=== PATIENT | male | born 1940 | race Hispanic/Latino ===

== ENCOUNTER 2017-10-14 19:50 | Inpatient (IN) | payer MEDICARE ==
[~2017-10-14] VITALS: Ht 165.1 cm; Wt 75.7 kg
[~2017-10-14 19:50] MED LIST: CLIN300C9 PO; CYCL5TAB PO; GABA-531 PO; HYDR-305 PO; LISI-617 PO; METO25TA6 PO; PANT20TA12 PO; TAMS0.4C32 PO
[2017-10-14 20:36] LABS: BASOPHILS % (AUTO) 0.2 % (0.0-5.0); EOSINOPHILS % (AUTO) 0.4 % (0.0-8.0); HEMATOCRIT 38.8 % (42-54); LYMPHOCYTES % (AUTO) 6.9 % (21.0-51.0); MEAN CORPUSCULAR HEMOGLOBIN 29.2 pg (27.0-33.0); MEAN CORPUSCULAR HGB CONC 33.6 g/dL (32.0-36.0); MEAN CORPUSCULAR VOLUME 86.9 fL (79-99); MONOCYTES % (AUTO) 7.8 % (3.0-13.0); NEUTROPHILS % (AUTO) 84.7 % (40.0-77.0); PLATELET COUNT (AUTO) 316 K/uL (130-400); RED BLOOD CELL COUNT(AUTO) 4.46 MIL/uL (4.50-6.20); RED CELL DISTRIBUTION WIDTH 13.8 % (11.0-15.5); WHITE BLOOD COUNT (AUTO) 11.8 K/uL (4.8-10.8)
[2017-10-14 20:47] LABS: CREATININE 0.7 mg/dL (0.5-1.5); INR 1.02 (0.85-1.15); PARTIAL THROMBOPLASTIN TIME 32.8 SEC (26.3-35.5); POTASSIUM 3.8 mmol/L (3.5-5.1); PROTHROMBIN TIME 10.7 SEC (9.6-11.6)
[2017-10-14 20:52] LABS: ALBUMIN 2.9 g/dL (3.5-5.0); BILIRUBIN,TOTAL 1.3 mg/dL (0.2-1.0); TOTAL PROTEIN, SERUM 7.1 g/dL (6.0-8.3)
[2017-10-14 21:25] LABS: APPEARANCE,URINE Clear (CLEAR); BILIRUBIN,URINE Negative (NEGATIVE); COLOR,URINE Yellow (YELLOW); GLUCOSE, URINE (UA) Negative (NEGATIVE); KETONES,URINE Trace mg/dL (NEGATIVE); LEUKOCYTE ESTERASE ,URINE Negative (NEGATIVE); NITRATE,URINE Negative (NEGATIVE); OCCULT BLOOD,URINE Negative (NEGATIVE); PROTEIN,URINE Negative (NEGATIVE)
[2017-10-14] MEDS ORDERED: SODIUM CHLORIDE 0.9% 1000ML 1,000 ML IV ONE (22:51)
[2017-10-14] MEDS ORDERED: GLUCAGON 1MG KIT 1 MG ML IM PRN (23:45)
[2017-10-14] MEDS: SODIUM CHLORIDE 0.9% 1000ML 1,000 ML IV SCH (23:45)
[2017-10-14] MEDS ORDERED: DEXTROSE 50%-WATER 50 ML DISP.SYRIN IV PRN (23:45)
[2017-10-14] MEDS ORDERED: DIAZEPAM 5 MG/ML 2 ML SYG IVP PRN (23:45)
[2017-10-15] VITALS (7 sets, daily range): BP systolic 108–180; BP diastolic 57–94
[2017-10-15] MEDS: TRAMADOL HCL 50 MG TABLET PO PRN ×2 (01:47→21:00)
[2017-10-15] MEDS ORDERED: GABA-529 PO (02:33)
[2017-10-15 04:53] LABS: BASOPHILS % (AUTO) 0.3 % (0.0-5.0); EOSINOPHILS % (AUTO) 0.1 % (0.0-8.0); HEMATOCRIT 33.5 % (42-54); LYMPHOCYTES % (AUTO) 8.2 % (21.0-51.0); MEAN CORPUSCULAR HEMOGLOBIN 30.5 pg (27.0-33.0); MONOCYTES % (AUTO) 9.2 % (3.0-13.0); NEUTROPHILS % (AUTO) 82.2 % (40.0-77.0); PLATELET COUNT (AUTO) 283 K/uL (130-400); RED BLOOD CELL COUNT(AUTO) 3.85 MIL/uL (4.50-6.20); RED CELL DISTRIBUTION WIDTH 13.6 % (11.0-15.5); WHITE BLOOD COUNT (AUTO) 8.7 K/uL (4.8-10.8)
[2017-10-15 05:01] LABS: ALBUMIN 2.3 g/dL (3.5-5.0); BILIRUBIN,TOTAL 1.3 mg/dL (0.2-1.0); CREATININE 0.7 mg/dL (0.5-1.5); POTASSIUM 3.7 mmol/L (3.5-5.1); TOTAL PROTEIN, SERUM 5.8 g/dL (6.0-8.3)
[2017-10-15] MEDS ORDERED: KETOROLAC TROMETHAMINE 30MG/ML IV PRN (08:45)
[2017-10-15] MEDS: PANTOPRAZOLE SODIUM 40 MG TABLET.DR PO SCH (09:34)
[2017-10-15] MEDS: LISINOPRIL 5 MG TABLET PO SCH (09:34)
[2017-10-15] MEDS: GABAPENTIN 100 MG CAPSULE PO SCH ×2 (09:37→20:59)
[2017-10-15] MEDS: SODIUM CHLORIDE 0.9% 1000ML 1,000 ML IV SCH ×2 (09:37→21:08)
[2017-10-15] MEDS: HYDROMORPHONE 1 MG/1 ML AMP IVP PRN ×2 (09:47→16:27)
[2017-10-15] MEDS: TAMSULOSIN HCL 0.4 MG CAP.ER.24H PO SCH (20:59)
[2017-10-15] MEDS: DOCUSATE SODIUM 100 MG CAP PO SCH (20:59)
[2017-10-15] MEDS: FINASTERIDE 5 MG TABLET PO SCH (20:59)
[2017-10-16 00:06] VITALS: BP 135/88
[2017-10-16 04:06] VITALS: BP 137/88
[2017-10-16 07:30] VITALS: BP 122/72
[2017-10-16] MEDS: TRAMADOL HCL 50 MG TABLET PO PRN (08:36)
[2017-10-16] MEDS: GABAPENTIN 100 MG CAPSULE PO SCH ×2 (08:36→21:24)
[2017-10-16] MEDS: PANTOPRAZOLE SODIUM 40 MG TABLET.DR PO SCH (08:36)
[2017-10-16] MEDS: FINASTERIDE 5 MG TABLET PO SCH (08:36)
[2017-10-16] MEDS: DOCUSATE SODIUM 100 MG CAP PO SCH ×2 (08:37→21:24)
[2017-10-16] MEDS: SODIUM CHLORIDE 0.9% 1000ML 1,000 ML IV SCH (10:01)
[2017-10-16] MEDS: LISINOPRIL 5 MG TABLET PO SCH (10:02)
[2017-10-16 11:00] VITALS: BP 109/68
[2017-10-16] MEDS ORDERED: VANCOMYCIN PROTOCOL PER PHARMACY IV SCH (11:15)
[2017-10-16] MEDS ORDERED: DEXTROSE 50%-WATER 50 ML DISP.SYRIN IV PRN (11:30)
[2017-10-16] MEDS ORDERED: GLUCAGON 1MG KIT 1 MG ML IM PRN (11:30)
[2017-10-16] MEDS: INSULIN HUMULIN R 100 UNIT/ML 3ML SQ SCH ×3 (11:30→21:00)
[2017-10-16] MEDS ORDERED: COMPOUND IV REFRIGERATED 1 EACH IVSOLN MISC PRN (11:30)
[2017-10-16 11:34] LABS: CREATININE 0.7 mg/dL (0.5-1.5); POTASSIUM 3.5 mmol/L (3.5-5.1)
[2017-10-16] MEDS: HYDROMORPHONE 1 MG/1 ML AMP IVP PRN ×2 (12:13→17:26)
[2017-10-16] MEDS: VANCOMYCIN 1.25 GM in SODIUM CHLORIDE 0.9% 250 ML IV SCH (12:38)
[2017-10-16] MEDS: DIAZEPAM 5 MG TABLET PO PRN ×2 (14:45→19:05)
[2017-10-16 16:00] VITALS: BP 122/82
[2017-10-16] MEDS: LACTULOSE 20 GM/30 ML UDCUP PO PRN (18:31)
[2017-10-16 19:49] VITALS: BP 137/86
[2017-10-16] MEDS: TAMSULOSIN HCL 0.4 MG CAP.ER.24H PO SCH (21:24)
[2017-10-17 00:02] VITALS: BP 140/75
[2017-10-17] MEDS: VANCOMYCIN 1.25 GM in SODIUM CHLORIDE 0.9% 250 ML IV SCH ×2 (00:56→12:42)
[2017-10-17] MEDS: HYDROMORPHONE 1 MG/1 ML AMP IVP PRN ×4 (02:45→21:19)
[2017-10-17] MEDS: SODIUM CHLORIDE 0.9% 1000ML 1,000 ML IV SCH ×3 (02:45→21:45)
[2017-10-17 04:03] VITALS: BP 132/81
[2017-10-17] MEDS: INSULIN HUMULIN R 100 UNIT/ML 3ML SQ SCH ×4 (06:41→21:00)
[2017-10-17 07:30] VITALS: BP 126/76
[2017-10-17] MEDS: DOCUSATE SODIUM 100 MG CAP PO SCH ×2 (09:13→21:12)
[2017-10-17] MEDS: LACTULOSE 20 GM/30 ML UDCUP PO PRN ×2 (09:13→21:10)
[2017-10-17] MEDS: PANTOPRAZOLE SODIUM 40 MG TABLET.DR PO SCH (09:14)
[2017-10-17] MEDS: LISINOPRIL 5 MG TABLET PO SCH (09:14)
[2017-10-17] MEDS: GABAPENTIN 100 MG CAPSULE PO SCH ×2 (09:14→21:12)
[2017-10-17] MEDS: FINASTERIDE 5 MG TABLET PO SCH (09:14)
[2017-10-17] MEDS: TRAMADOL HCL 50 MG TABLET PO PRN ×2 (09:30→14:52)
[2017-10-17 11:44] VITALS: BP 134/78
[2017-10-17] MEDS ORDERED: GADODIAMIDE 10 MMOL/20 ML ML IV ONE (14:47)
[2017-10-17 17:16] VITALS: BP 144/91
[2017-10-17 19:05] VITALS: BP 157/85
[2017-10-17] MEDS: TAMSULOSIN HCL 0.4 MG CAP.ER.24H PO SCH (21:11)
[2017-10-18] VITALS (7 sets, daily range): BP systolic 128–152; BP diastolic 79–102
[2017-10-18] MEDS: VANCOMYCIN 1.25 GM in SODIUM CHLORIDE 0.9% 250 ML IV SCH ×2 (00:46→13:43)
[2017-10-18] MEDS: INSULIN HUMULIN R 100 UNIT/ML 3ML SQ SCH ×4 (06:34→21:00)
[2017-10-18 08:01] LABS: BASOPHILS % (AUTO) 0.7 % (0.0-5.0); EOSINOPHILS % (AUTO) 1.8 % (0.0-8.0); HEMATOCRIT 36.4 % (42-54); LYMPHOCYTES % (AUTO) 9.6 % (21.0-51.0); MEAN CORPUSCULAR HEMOGLOBIN 29.2 pg (27.0-33.0); MEAN CORPUSCULAR HGB CONC 33.4 g/dL (32.0-36.0); MEAN CORPUSCULAR VOLUME 87.6 fL (79-99); MONOCYTES % (AUTO) 7.3 % (3.0-13.0); NEUTROPHILS % (AUTO) 80.6 % (40.0-77.0); PLATELET COUNT (AUTO) 232 K/uL (130-400); RED BLOOD CELL COUNT(AUTO) 4.16 MIL/uL (4.50-6.20); RED CELL DISTRIBUTION WIDTH 13.5 % (11.0-15.5); WHITE BLOOD COUNT (AUTO) 7.5 K/uL (4.8-10.8)
[2017-10-18 08:19] LABS: ALBUMIN 2.1 g/dL (3.5-5.0); BILIRUBIN,TOTAL 0.9 mg/dL (0.2-1.0); CREATININE 0.6 mg/dL (0.5-1.5); TOTAL PROTEIN, SERUM 5.9 g/dL (6.0-8.3)
[2017-10-18] MEDS: LISINOPRIL 5 MG TABLET PO SCH (09:51)
[2017-10-18] MEDS: FINASTERIDE 5 MG TABLET PO SCH (09:51)
[2017-10-18] MEDS: GABAPENTIN 100 MG CAPSULE PO SCH ×2 (09:52→21:18)
[2017-10-18] MEDS: DOCUSATE SODIUM 100 MG CAP PO SCH ×2 (09:52→21:18)
[2017-10-18] MEDS: PANTOPRAZOLE SODIUM 40 MG TABLET.DR PO SCH (09:52)
[2017-10-18] MEDS: HYDROMORPHONE 1 MG/1 ML AMP IVP PRN ×2 (11:29→17:48)
[2017-10-18] MEDS: DIAZEPAM 5 MG TABLET PO PRN (13:42)
[2017-10-18] MEDS ORDERED: CLONIDINE HCL 0.1 MG TABLET PO PRN (15:00)
[2017-10-18] MEDS ORDERED: SIMETHICONE 80 MG TAB.CHEW PO PRN (15:00)
[2017-10-18] MEDS: SODIUM CHLORIDE 0.9% 1000ML 1,000 ML IV SCH ×2 (17:45→21:19)
[2017-10-18] MEDS ORDERED: LIDOCAINE HCL-MPF 1% 2ML VIAL IVP PRN (18:15)
[2017-10-18] MEDS ORDERED: POTASSIUM CHLORIDE 10% ELIXIR 20 MEQ/15 ML UDCUP PO PRN (18:15)
[2017-10-18] MEDS ORDERED: POTASSIUM CHLORIDE 20MEQ/100ML 100 ML IV PRN (18:15)
[2017-10-18] MEDS ORDERED: POTASSIUM CHLORIDE 20 MEQ ERTAB PO PRN (18:15)
[2017-10-18] MEDS: METOPROLOL TARTRATE 25 MG TAB PO SCH (21:17)
[2017-10-18] MEDS: TAMSULOSIN HCL 0.4 MG CAP.ER.24H PO SCH (21:18)
[2017-10-19] VITALS (19 sets, daily range): BP systolic 94–161; BP diastolic 57–107
[2017-10-19] MEDS: VANCOMYCIN 1.25 GM in SODIUM CHLORIDE 0.9% 250 ML IV SCH (00:12)
[2017-10-19] MEDS: HYDROMORPHONE 1 MG/1 ML AMP IVP PRN ×3 (00:14→14:18)
[2017-10-19] MEDS: SODIUM CHLORIDE 0.9% 1000ML 1,000 ML IV SCH ×3 (04:35→23:08)
[2017-10-19] MEDS: INSULIN HUMULIN R 100 UNIT/ML 3ML SQ SCH ×4 (06:32→21:00)
[2017-10-19] MEDS: FINASTERIDE 5 MG TABLET PO SCH (09:00)
[2017-10-19] MEDS: GABAPENTIN 100 MG CAPSULE PO SCH ×2 (09:00→21:00)
[2017-10-19] MEDS ORDERED: HYDRALAZINE HCL 20 MG/ML VIAL IV PRN (09:00)
[2017-10-19] MEDS: DOCUSATE SODIUM 100 MG CAP PO SCH ×2 (09:00→21:00)
[2017-10-19] MEDS: PANTOPRAZOLE SODIUM 40 MG TABLET.DR PO SCH (09:00)
[2017-10-19] MEDS: METOPROLOL TARTRATE 25 MG TAB PO SCH ×2 (09:40→21:00)
[2017-10-19] MEDS: LISINOPRIL 5 MG TABLET PO SCH (09:44)
[2017-10-19] MEDS ORDERED: BUPIVACAINE/PF 0.5% 10ML VIAL ONE (12:19)
[2017-10-19] MEDS ORDERED: VANCOMYCIN HCL 1 GM VIAL ONE (12:19)
[2017-10-19] MEDS ORDERED: GENTAMICIN SULFATE 80 MG/2 ML VIAL ONE (12:19)
[2017-10-19] MEDS ORDERED: TOBRAMYCIN SULFATE 40MG/1ML VIAL ONE (12:19)
[2017-10-19] MEDS ORDERED: BACITRACIN 50,000 UNIT VIAL ONE (12:20)
[2017-10-19] MEDS ORDERED: THROMBIN-JMI 5000 UNIT/VIAL TP ONE (12:20)
[2017-10-19] MEDS: VANCOMYCIN 1.75 GM in SODIUM CHLORIDE 0.9% 250 ML IV SCH (13:52)
[2017-10-19] MEDS ORDERED: ONDANSETRON HCL MDV 20ML 2 MG/ML VIAL IVP PRN (15:30)
[2017-10-19] MEDS ORDERED: LIDOCAINE HCL-MPF 1% 2ML VIAL IVP PRN (15:45)
[2017-10-19] MEDS ORDERED: POTASSIUM CHLORIDE 20MEQ/100ML 100 ML IV PRN (15:45)
[2017-10-19] MEDS ORDERED: LIDOCAINE PF 2% 5ML ABBOJECT ONE (18:00)
[2017-10-19] MEDS ORDERED: PROPOFOL 10 MG/ML 20ML VIAL IV ONE ×2 (18:00→20:32)
[2017-10-19] MEDS ORDERED: ROCURONIUM 10MG/1ML SYR 10 MG/ML ML ONE ×2 (18:00→18:39)
[2017-10-19] MEDS ORDERED: LIDOCAINE 1%-EPI 1:100,000 20 ML VIAL IJ ONE ×2 (18:36)
[2017-10-19] MEDS ORDERED: FENTANYL CITRATE PF 50 MCG/1 ML 2ML VIAL ONE ×2 (18:39→20:09)
[2017-10-19] MEDS ORDERED: EPHEDRINE SULFATE 50 MG/ML AMPULE ONE (18:49)
[2017-10-19] MEDS: TAMSULOSIN HCL 0.4 MG CAP.ER.24H PO SCH (21:00)
[2017-10-19] MEDS: PHARMACY COMMUNICATION MISC SCH (21:00)
[2017-10-20] VITALS (8 sets, daily range): BP systolic 136–148; BP diastolic 79–99
[2017-10-20] MEDS: VANCOMYCIN 1.75 GM in SODIUM CHLORIDE 0.9% 250 ML IV SCH ×2 (01:24→13:25)
[2017-10-20] MEDS: HYDROMORPHONE 1 MG/1 ML AMP IVP PRN ×2 (04:10→22:24)
[2017-10-20 05:11] LABS: HEMATOCRIT 36.8 % (42-54); LYMPHOCYTES % (AUTO) 2.7 % (21.0-51.0); MEAN CORPUSCULAR HEMOGLOBIN 29.2 pg (27.0-33.0); MEAN CORPUSCULAR HGB CONC 33.7 g/dL (32.0-36.0); MEAN CORPUSCULAR VOLUME 86.9 fL (79-99); MONOCYTES % (AUTO) 3.6 % (3.0-13.0); NEUTROPHILS % (AUTO) 93.7 % (40.0-77.0); PLATELET COUNT (AUTO) 235 K/uL (130-400); RED BLOOD CELL COUNT(AUTO) 4.24 MIL/uL (4.50-6.20); RED CELL DISTRIBUTION WIDTH 13.9 % (11.0-15.5); WHITE BLOOD COUNT (AUTO) 10.3 K/uL (4.8-10.8)
[2017-10-20 05:22] LABS: ALBUMIN 2.1 g/dL (3.5-5.0); CREATININE 0.7 mg/dL (0.5-1.5); POTASSIUM 3.9 mmol/L (3.5-5.1); TOTAL PROTEIN, SERUM 5.9 g/dL (6.0-8.3)
[2017-10-20] MEDS: INSULIN HUMULIN R 100 UNIT/ML 3ML SQ SCH ×4 (06:33→20:33)
[2017-10-20] MEDS: PHARMACY COMMUNICATION MISC SCH ×3 (09:00→21:00)
[2017-10-20] MEDS: METOPROLOL TARTRATE 25 MG TAB PO SCH ×2 (09:35→20:33)
[2017-10-20] MEDS: PANTOPRAZOLE SODIUM 40 MG TABLET.DR PO SCH (09:35)
[2017-10-20] MEDS: GABAPENTIN 100 MG CAPSULE PO SCH ×2 (09:35→20:33)
[2017-10-20] MEDS: DOCUSATE SODIUM 100 MG CAP PO SCH ×2 (09:35→20:33)
[2017-10-20] MEDS: LISINOPRIL 5 MG TABLET PO SCH (09:35)
[2017-10-20] MEDS: FINASTERIDE 5 MG TABLET PO SCH (09:35)
[2017-10-20] MEDS: SODIUM CHLORIDE 0.9% 1000ML 1,000 ML IV SCH (13:32)
[2017-10-20] MEDS: TRAMADOL HCL 50 MG TABLET PO PRN (15:18)
[2017-10-20] MEDS: TAMSULOSIN HCL 0.4 MG CAP.ER.24H PO SCH (20:33)
[2017-10-21] MEDS: TRAMADOL HCL 50 MG TABLET PO PRN (00:01)
[2017-10-21] MEDS: VANCOMYCIN 1.75 GM in SODIUM CHLORIDE 0.9% 250 ML IV SCH ×2 (00:51→12:59)
[2017-10-21 03:00] VITALS: BP 142/75
[2017-10-21] MEDS: SODIUM CHLORIDE 0.9% 1000ML 1,000 ML IV SCH (04:59)
[2017-10-21 05:01] LABS: BASOPHILS % (AUTO) 0.5 % (0.0-5.0); EOSINOPHILS % (AUTO) 1.7 % (0.0-8.0); HEMATOCRIT 33.5 % (42-54); LYMPHOCYTES % (AUTO) 10.1 % (21.0-51.0); MEAN CORPUSCULAR HEMOGLOBIN 29.8 pg (27.0-33.0); MEAN CORPUSCULAR HGB CONC 34.1 g/dL (32.0-36.0); MEAN CORPUSCULAR VOLUME 87.5 fL (79-99); MONOCYTES % (AUTO) 8.2 % (3.0-13.0); NEUTROPHILS % (AUTO) 79.5 % (40.0-77.0); PLATELET COUNT (AUTO) 211 K/uL (130-400); RED BLOOD CELL COUNT(AUTO) 3.83 MIL/uL (4.50-6.20); RED CELL DISTRIBUTION WIDTH 14.2 % (11.0-15.5); WHITE BLOOD COUNT (AUTO) 7.9 K/uL (4.8-10.8)
[2017-10-21 05:16] LABS: BILIRUBIN,TOTAL 1.1 mg/dL (0.2-1.0); CREATININE 0.6 mg/dL (0.5-1.5); POTASSIUM 3.7 mmol/L (3.5-5.1); TOTAL PROTEIN, SERUM 5.5 g/dL (6.0-8.3)
[2017-10-21] MEDS: INSULIN HUMULIN R 100 UNIT/ML 3ML SQ SCH ×3 (05:23→16:30)
[2017-10-21] MEDS: HYDROMORPHONE 1 MG/1 ML AMP IVP PRN (05:37)
[2017-10-21 06:10] LABS: HIGH SENSITIVITY CRP 94.15 mg/L (0.0-3.0)
[2017-10-21 06:24] LABS: ERYTHROCYTE SEDIMENTATION RATE 30 MM/HR (0-20)
[2017-10-21 08:00] VITALS: BP 140/93
[2017-10-21] MEDS: PHARMACY COMMUNICATION MISC SCH ×2 (09:00→14:00)
[2017-10-21] MEDS: FINASTERIDE 5 MG TABLET PO SCH (10:18)
[2017-10-21] MEDS: METOPROLOL TARTRATE 25 MG TAB PO SCH (10:18)
[2017-10-21] MEDS: DOCUSATE SODIUM 100 MG CAP PO SCH (10:18)
[2017-10-21] MEDS: PANTOPRAZOLE SODIUM 40 MG TABLET.DR PO SCH (10:18)
[2017-10-21] MEDS: GABAPENTIN 100 MG CAPSULE PO SCH (10:18)
[2017-10-21] MEDS: LISINOPRIL 5 MG TABLET PO SCH (10:19)
[2017-10-21 11:00] VITALS: BP 140/79
[2017-10-21] MEDS: LACTULOSE 20 GM/30 ML UDCUP PO PRN (11:13)
[2017-10-21 12:13] LABS: INR 1.14 (0.85-1.15); PARTIAL THROMBOPLASTIN TIME 34.8 SEC (26.3-35.5); PROTHROMBIN TIME 11.9 SEC (9.6-11.6)
[2017-10-21 16:00] VITALS: BP 147/80
[2017-10-21] MEDS ORDERED: METOPROLOL TARTRATE 50 MG TAB PO SCH (21:00)
== END 2017-10-21 20:10 | DRG 457 ==
LOC: EDH 19:50 → EDHIP 22:42 → 3BH 10-15 00:03
PROVIDERS: ADMIT Hospitalist; ATTEND Hospitalist
PROC: 00BX3ZX Excision of Thoracic Spinal Cord, Percutaneous Approach, Diagnostic (ICD-10-PCS; 2017-10-19)
PROC: 4A11X4G Monitoring of Peripheral Nervous Electrical Activity, Intraoperative, External Approach (ICD-10-PCS; 2017-10-19)
PROC: 0RG7071 Fusion of 2 to 7 Thoracic Vertebral Joints with Autologous Tissue Substitute, Posterior Approach, Posterior Column, Open Approach (ICD-10-PCS; principal; 2017-10-19 18:00)
PROC: 02HV33Z Insertion of Infusion Device into Superior Vena Cava, Percutaneous Approach (ICD-10-PCS; 2017-10-21)
DX: M48.54XA Collapsed vertebra, not elsewhere classified, thoracic region, initial encounter for fracture (principal); M86.9 Osteomyelitis, unspecified; E87.1 Hypo-osmolality and hyponatremia; G95.20 Unspecified cord compression; E44.1 Mild protein-calorie malnutrition; M48.061 Spinal stenosis, lumbar region without neurogenic claudication; N40.1 Benign prostatic hyperplasia with lower urinary tract symptoms; R33.8 Other retention of urine; I10 Essential (primary) hypertension; K74.60 Unspecified cirrhosis of liver; B96.89 Other specified bacterial agents as the cause of diseases classified elsewhere; E11.69 Type 2 diabetes mellitus with other specified complication; E78.5 Hyperlipidemia, unspecified; G89.29 Other chronic pain; I71.2 Thoracic aortic aneurysm, without rupture; K59.00 Constipation, unspecified; M40.209 Unspecified kyphosis, site unspecified; M43.17 Spondylolisthesis, lumbosacral region; N28.1 Cyst of kidney, acquired; Z79.2 Long term (current) use of antibiotics; Z68.27 Body mass index [BMI] 27.0-27.9, adult; Z79.4 Long term (current) use of insulin; Z80.42 Family history of malignant neoplasm of prostate; Z86.011 Personal history of benign neoplasm of the brain; Z87.891 Personal history of nicotine dependence; Z92.3 Personal history of irradiation; Z95.810 Presence of automatic (implantable) cardiac defibrillator; Z88.8 Allergy status to other drugs, medicaments and biological substances; Z88.0 Allergy status to penicillin; Z79.899 Other long term (current) drug therapy; Z82.49 Family history of ischemic heart disease and other diseases of the circulatory system; Z82.5 Family history of asthma and other chronic lower respiratory diseases
CPT/HCPCS: 36415; 71045; 72158; 74018; 74176; 76000; 80048; 80053; 80202; 81003; 82550; 82553; 82948; 83880; 83930; 83935; 84132; 84443; 84484; 85025; 85610; 85651; 85730; 86141; 87040; 87186; 88305; 88311; 93005; 93970; 97039; A9579; C1894; J1170; J1580; J1885; J2001; J2704; J3010; J3260; J3370; J3480; J3490; J7030

== ENCOUNTER → 2017-12-22 | Outpatient (CLI) | payer MEDICARE ==
[~2017-12-22] MED LIST changes: -CLIN300C9 PO; -CYCL5TAB PO; +GABA-529 PO; -GABA-531 PO; -HYDR-305 PO; -METO25TA6 PO
[2017-12-22 08:35] LABS: EOSINOPHILS % (AUTO) 3.5 % (0.0-8.0); HEMATOCRIT 41.4 % (42-54); LYMPHOCYTES % (AUTO) 21.8 % (21.0-51.0); MEAN CORPUSCULAR HEMOGLOBIN 29.4 pg (27.0-33.0); MEAN CORPUSCULAR HGB CONC 33.5 g/dL (32.0-36.0); MEAN CORPUSCULAR VOLUME 87.9 fL (79-99); NEUTROPHILS % (AUTO) 67.7 % (40.0-77.0); PLATELET COUNT (AUTO) 218 K/uL (130-400); RED BLOOD CELL COUNT(AUTO) 4.72 MIL/uL (4.50-6.20); RED CELL DISTRIBUTION WIDTH 16.3 % (11.0-15.5); WHITE BLOOD COUNT (AUTO) 6.6 K/uL (4.8-10.8)
[2017-12-22 08:42] LABS: CREATININE 0.8 mg/dL (0.5-1.5); POTASSIUM 4.3 mmol/L (3.5-5.1)
== END | disposition home or self-care (01) ==
LOC: LAB 07:54
PROVIDERS: ATTEND Urology
DX: R31.29 Other microscopic hematuria (principal)
CPT/HCPCS: 36415; 80048; 85025

== ENCOUNTER → 2018-01-05 | Outpatient (CLI) | payer MEDICARE | END | disposition home or self-care (01) | LOC: RAH 08:28 | PROVIDERS: ATTEND Neuromusculoskeletal Medicine & OMM | DX: M43.07 Spondylolysis, lumbosacral region (principal); M54.6 Pain in thoracic spine | CPT/HCPCS: 72070; 72100 ==

== ENCOUNTER → 2018-01-06 | Outpatient (CLI) | payer MEDICARE ==
[~2018-01-06] MED LIST changes: +IOHEXOL-350 75 ML VIAL IV ONE
== END | disposition home or self-care (01) ==
LOC: OIH 08:11
PROVIDERS: ATTEND Urology
DX: N28.1 Cyst of kidney, acquired (principal); K57.90 Diverticulosis of intestine, part unspecified, without perforation or abscess without bleeding; I70.90 Unspecified atherosclerosis
CPT/HCPCS: 74178; Q9967

== ENCOUNTER 2018-01-12 15:30 | Emergency (ER) | payer MEDICARE ==
[~2018-01-12 15:30] MED LIST changes: -IOHEXOL-350 75 ML VIAL IV ONE
[2018-01-12 16:40] LABS: BASOPHILS % (AUTO) 0.7 % (0.0-5.0); EOSINOPHILS % (AUTO) 2.9 % (0.0-8.0); LYMPHOCYTES % (AUTO) 14.6 % (21.0-51.0); MEAN CORPUSCULAR HEMOGLOBIN 29.9 pg (27.0-33.0); MEAN CORPUSCULAR HGB CONC 33.5 g/dL (32.0-36.0); MEAN CORPUSCULAR VOLUME 89.1 fL (79-99); MONOCYTES % (AUTO) 8.5 % (3.0-13.0); NEUTROPHILS % (AUTO) 73.3 % (40.0-77.0); NUCLEATED RED BLOOD CELLS 0.1 % (0.0-0.19); PLATELET COUNT (AUTO) 202 K/uL (130-400); RED BLOOD CELL COUNT(AUTO) 4.38 MIL/uL (4.50-6.20); RED CELL DISTRIBUTION WIDTH 14.9 % (11.0-15.5); WHITE BLOOD COUNT (AUTO) 6.9 K/uL (4.8-10.8)
[2018-01-12 16:51] LABS: CREATININE 0.9 mg/dL (0.5-1.5); POTASSIUM 3.9 mmol/L (3.5-5.1)
[2018-01-12 16:53] LABS: INR 1.04 (0.85-1.15); PARTIAL THROMBOPLASTIN TIME 30.3 SEC (26.3-35.5); PROTHROMBIN TIME 10.9 SEC (9.6-11.6)
[2018-01-12 16:56] LABS: ALBUMIN 3.2 g/dL (3.5-5.0); BILIRUBIN,TOTAL 0.5 mg/dL (0.2-1.0); TOTAL PROTEIN, SERUM 6.6 g/dL (6.0-8.3)
[2018-01-12 17:01] LABS: B-TYPE NATRIURETIC PEPTIDE 159 pg/mL (0-100)
[2018-01-12 17:57] LABS: APPEARANCE,URINE Clear (CLEAR); BILIRUBIN,URINE Negative (NEGATIVE); COLOR,URINE Yellow (YELLOW); GLUCOSE, URINE (UA) Negative (NEGATIVE); KETONES,URINE Negative (NEGATIVE); LEUKOCYTE ESTERASE ,URINE Negative (NEGATIVE); NITRATE,URINE Negative (NEGATIVE); OCCULT BLOOD,URINE Negative (NEGATIVE); PH,URINE 5.5 (5.0-8.0); PROTEIN,URINE Negative (NEGATIVE)
== END 2018-01-12 18:29 | disposition home or self-care (01) ==
LOC: EDH 15:30
DX: I95.2 Hypotension due to drugs (principal); I10 Essential (primary) hypertension; E78.5 Hyperlipidemia, unspecified; Z98.890 Other specified postprocedural states; Z87.442 Personal history of urinary calculi
CPT/HCPCS: 36415; 80053; 81003; 82550; 83880; 84484; 85025; 85610; 85730; 93005

== ENCOUNTER → 2018-06-14 | Outpatient (CLI) | payer MEDICARE ==
[~2018-06-14] MED LIST changes: +IOHEXOL 350 MG/ML 100ML INFUS..BTL IV ONE
== END | disposition home or self-care (01) ==
LOC: RAH 08:23
PROVIDERS: ATTEND Internal Medicine Cardiovascular Disease
DX: I71.2 Thoracic aortic aneurysm, without rupture (principal); N28.1 Cyst of kidney, acquired; I70.90 Unspecified atherosclerosis
CPT/HCPCS: 71275; Q9967

== ENCOUNTER → 2019-08-16 | Outpatient (CLI) | payer OTHER, MEDICARE ==
[~2019-08-16] MED LIST changes: -IOHEXOL 350 MG/ML 100ML INFUS..BTL IV ONE; -PANT20TA12 PO; +PANT20TA18 PO
[2019-08-16 09:14] LABS: CREATININE 0.9 mg/dL (0.5-1.5)
== END | disposition home or self-care (01) ==
LOC: LAB 08:15
PROVIDERS: ATTEND Thoracic Surgery (Cardiothoracic Vascular Surgery)
DX: I71.2 Thoracic aortic aneurysm, without rupture (principal)
CPT/HCPCS: 36415; 82565; 84520

== ENCOUNTER → 2019-08-20 | Outpatient (CLI) | payer OTHER, MEDICARE ==
[~2019-08-20] MED LIST changes: +IOHEXOL-350 75 ML VIAL IV ONE
== END | disposition home or self-care (01) ==
LOC: RAH 07:48
PROVIDERS: ATTEND Thoracic Surgery (Cardiothoracic Vascular Surgery)
DX: I71.2 Thoracic aortic aneurysm, without rupture (principal); I70.0 Atherosclerosis of aorta; J98.11 Atelectasis; N28.1 Cyst of kidney, acquired; M47.814 Spondylosis without myelopathy or radiculopathy, thoracic region; Z96.89 Presence of other specified functional implants
CPT/HCPCS: 71275; Q9967

== ENCOUNTER → 2020-01-08 | Outpatient (CLI) | payer OTHER, MEDICARE ==
[~2020-01-08] MED LIST changes: -IOHEXOL-350 75 ML VIAL IV ONE
== END | disposition home or self-care (01) ==
LOC: SHCH 11:23
PROVIDERS: ATTEND Internal Medicine Cardiovascular Disease
DX: M79.606 Pain in leg, unspecified (principal)
CPT/HCPCS: 93922

== ENCOUNTER → 2020-06-02 | Outpatient (CLI) | payer OTHER, MEDICARE ==
[~2020-06-02] MED LIST changes: -LISI-617 PO; +LISI-809 PO
== END | disposition home or self-care (01) ==
LOC: SHCH 09:49
PROVIDERS: ATTEND Internal Medicine Cardiovascular Disease
DX: M79.661 Pain in right lower leg (principal); M79.662 Pain in left lower leg
CPT/HCPCS: 93925

== ENCOUNTER → 2020-12-19 | Outpatient (CLI) | payer OTHER, MEDICARE ==
[~2020-12-19] MED LIST changes: -LISI-809 PO; +LISI5TAB21 PO
== END | disposition home or self-care (01) ==
LOC: SHCH 12:51
PROVIDERS: ATTEND Internal Medicine Cardiovascular Disease
DX: I08.0 Rheumatic disorders of both mitral and aortic valves (principal); I11.9 Hypertensive heart disease without heart failure; E66.9 Obesity, unspecified; E78.5 Hyperlipidemia, unspecified
CPT/HCPCS: 93306; 93356

== ENCOUNTER → 2022-05-06 | Outpatient (CLI) | payer OTHER, MEDICARE ==
[2022-05-06 14:04] LABS: BASOPHILS % (AUTO) 0.7 % (0.0-5.0); EOSINOPHILS % (AUTO) 4.7 % (0.0-8.0); HEMATOCRIT 48.6 % (42-54); LYMPHOCYTES % (AUTO) 22.3 % (21.0-51.0); MEAN CORPUSCULAR HEMOGLOBIN 31.7 pg (27.0-33.0); MEAN CORPUSCULAR VOLUME 93.3 fL (79-99); NEUTROPHILS % (AUTO) 65.9 % (40.0-77.0); PLATELET COUNT (AUTO) 171 K/uL (130-400); RED BLOOD CELL COUNT(AUTO) 5.21 MIL/uL (4.50-6.20); RED CELL DISTRIBUTION WIDTH 13.1 % (11.0-15.5); WHITE BLOOD COUNT (AUTO) 7.3 K/uL (4.8-10.8)
[2022-05-06 14:19] LABS: ALBUMIN 3.9 g/dL (3.5-5.0); CREATININE 0.9 mg/dL (0.5-1.5); POTASSIUM 4.3 mmol/L (3.5-5.1); TOTAL PROTEIN, SERUM 7.3 g/dL (6.0-8.3)
== END | disposition home or self-care (01) ==
LOC: LAB 08:09
PROVIDERS: ATTEND Internal Medicine Cardiovascular Disease
DX: I71.20 Thoracic aortic aneurysm, without rupture, unspecified (principal); E78.00 Pure hypercholesterolemia, unspecified
CPT/HCPCS: 36415; 80053; 80061; 85025

== ENCOUNTER → 2022-07-16 | Outpatient (CLI) | payer OTHER, MEDICARE ==
[~2022-07-16] MED LIST changes: +ASPI-1005 PO; +ASPI-1443 PO; +ATOR-2 PO; +BACL10TA PO; +FINA5TAB41 PO; -GABA-529 PO; -LISI5TAB21 PO; +LOSA25TA2 PO; -PANT20TA18 PO; +PANT40TA54 PO; +SOLI5TAB6 PO
== END | disposition home or self-care (01) ==
LOC: RAH 12:54
PROVIDERS: ATTEND Internal Medicine Cardiovascular Disease
DX: I07.1 Rheumatic tricuspid insufficiency (principal); I71.20 Thoracic aortic aneurysm, without rupture, unspecified; I11.9 Hypertensive heart disease without heart failure
CPT/HCPCS: 93306

== ENCOUNTER → 2022-09-27 | Outpatient (CLI) | payer OTHER, MEDICARE ==
[2022-09-27 12:35] LABS: BILIRUBIN,DIRECT 0.3 mg/dL (0.0-0.3); BILIRUBIN,TOTAL 2.2 mg/dL (0.2-1.0); TOTAL PROTEIN, SERUM 7.1 g/dL (6.0-8.3)
== END | disposition home or self-care (01) ==
LOC: LAB 09:42
PROVIDERS: ATTEND Internal Medicine Cardiovascular Disease
DX: E78.2 Mixed hyperlipidemia (principal)
CPT/HCPCS: 36415; 80061; 80076

== ENCOUNTER → 2023-09-30 | Outpatient (CLI) | payer OTHER, MEDICARE ==
[~2023-09-30] MED LIST changes: +LOSA-417 PO; -LOSA25TA2 PO
[2023-09-30 12:26] LABS: BASOPHILS # (AUTO) 0.07 K/uL (0.00-0.20); EOSINOPHILS # (AUTO) 0.38 K/uL (0.00-0.70); EOSINOPHILS % (AUTO) 5.2 % (0.0-8.0); HEMATOCRIT 47.5 % (42-54); IMMATURE GRANULOCYTE ABSOLUTE 0.03 K/uL (0-1); LYMPHOCYTES # (AUTO) 1.7 K/uL (1.0-4.8); LYMPHOCYTES % (AUTO) 23.8 % (21.0-51.0); MEAN CORPUSCULAR HEMOGLOBIN 31.7 pg (27.0-33.0); MEAN CORPUSCULAR HGB CONC 33.7 g/dL (32.0-36.0); MEAN CORPUSCULAR VOLUME 94.2 fL (79-99); MONOCYTES # (AUTO) 0.5 K/uL (0.1-1.0); MONOCYTES % (AUTO) 6.9 % (3.0-13.0); NEUTROPHILS # (AUTO) 4.6 K/uL (1.8-7.7); NEUTROPHILS % (AUTO) 62.7 % (40.0-77.0); PLATELET COUNT (AUTO) 176 K/uL (130-400); RED BLOOD CELL COUNT(AUTO) 5.04 MIL/uL (4.50-6.20); RED CELL DISTRIBUTION WIDTH 12.9 % (11.0-15.5); WHITE BLOOD COUNT (AUTO) 7.3 K/uL (4.8-10.8)
[2023-09-30 12:48] LABS: ALBUMIN 3.7 g/dL (3.5-5.0); BILIRUBIN,TOTAL 1.8 mg/dL (0.2-1.0); TOTAL PROTEIN, SERUM 6.9 g/dL (6.0-8.3)
== END | disposition home or self-care (01) ==
LOC: LAB 08:22
PROVIDERS: ATTEND Internal Medicine Cardiovascular Disease
DX: E78.5 Hyperlipidemia, unspecified (principal); I73.9 Peripheral vascular disease, unspecified
CPT/HCPCS: 36415; 80053; 80061; 85025

== ENCOUNTER → 2024-04-09 | Outpatient (CLI) | payer OTHER, MEDICARE ==
[2024-04-09 12:50] LABS: ALBUMIN 3.5 g/dL (3.5-5.0); BILIRUBIN,TOTAL 1.6 mg/dL (0.2-1.0); CREATININE 0.6 mg/dL (0.5-1.3); TOTAL PROTEIN, SERUM 6.4 g/dL (6.0-8.3)
== END | disposition home or self-care (01) ==
LOC: LAB 08:17
PROVIDERS: ATTEND Internal Medicine Cardiovascular Disease
DX: I71.9 Aortic aneurysm of unspecified site, without rupture (principal)
CPT/HCPCS: 36415; 80053; 80061